=== PATIENT | female | born 1940 | race Caucasian/White ===

== ENCOUNTER → 2019-08-08 | Outpatient (CLI) | payer OTHER | LOC: SJCVC 12:41 | DX: I20.9 Angina pectoris, unspecified (principal); E78.5 Hyperlipidemia, unspecified; I48.0 Paroxysmal atrial fibrillation; I65.23 Occlusion and stenosis of bilateral carotid arteries ==

== ENCOUNTER → 2020-03-18 | Outpatient (CLI) | payer OTHER ==
[~2020-03-18] MED LIST: ALLEGRA ALLERG180 MG PO; ASPIRIN81 M2 PO; ATENOLOL 25 MG25 M1 PO; CALCIUM 600 +1 EAC1 PO; CO Q-10100 MG PO; ESTRACE0.5 MG PO; FLONASE 0.05%50 MCG NASAL; GLUCOSAMINE &1 EAC1 PO; HYDROCODON-ACE1 EAC7 PO; KRILL OIL500 MG PO; LOPRESSOR 12.12.5 MG PO; METOPROLOL SUCC25 M1 PO; MIRALAX255 GM PO; MULTIVITAMINS PO; PACERONE 200 M200 MG PO; PROTONIX40 M2 PO; RED YEAST RICE600 MG PO
== END ==
LOC: SJCVC 09:40
PROVIDERS: ATTEND Internal Medicine
DX: I20.9 Angina pectoris, unspecified (principal); E78.5 Hyperlipidemia, unspecified; I48.0 Paroxysmal atrial fibrillation; I65.23 Occlusion and stenosis of bilateral carotid arteries; Z79.82 Long term (current) use of aspirin; Z79.899 Other long term (current) drug therapy; Z87.891 Personal history of nicotine dependence; Z72.89 Other problems related to lifestyle; Z79.01 Long term (current) use of anticoagulants

== ENCOUNTER → 2020-12-27 | Outpatient (CLI) | payer OTHER | LOC: SJCVC 15:14 | PROVIDERS: ATTEND Internal Medicine | DX: I65.23 Occlusion and stenosis of bilateral carotid arteries (principal); I20.9 Angina pectoris, unspecified; E78.5 Hyperlipidemia, unspecified; I48.0 Paroxysmal atrial fibrillation; R00.2 Palpitations; Z72.89 Other problems related to lifestyle; Z88.0 Allergy status to penicillin; Z79.82 Long term (current) use of aspirin; Z79.899 Other long term (current) drug therapy; Z87.891 Personal history of nicotine dependence; Z88.1 Allergy status to other antibiotic agents ==

== ENCOUNTER → 2021-03-31 | Outpatient (CLI) | payer OTHER | LOC: SJCVC 11:11 | PROVIDERS: ATTEND Internal Medicine | DX: I20.9 Angina pectoris, unspecified (principal); E78.5 Hyperlipidemia, unspecified; I48.0 Paroxysmal atrial fibrillation; I65.23 Occlusion and stenosis of bilateral carotid arteries ==